=== PATIENT | male | born 1935 | race Caucasian/White ===

== ENCOUNTER 2021-01-03 13:21 | Emergency (ER) | payer MEDICARE ==
[2021-01-03 13:47] LABS: BASOPHILS % (AUTO) 0.7 %; EOSINOPHILS % (AUTO) 2.4 %; HCT - HEMATOCRIT 47.3 % (42.0-52.0); LYMPHOCYTES % (AUTO) 18.7 %; MEAN CORPUSCULAR HEMOGLOBIN 30.4 pg (27.0-31.0); MEAN CORPUSCULAR HGB CONC 33.8 g/dL (32.0-36.0); MEAN CORPUSCULAR VOLUME 89.9 fL (80.0-94.0); MEAN PLATELET VOLUME 10.1 fL (7.4-11.4); MONOCYTES % (AUTO) 20.4 %; NEUTROPHILS % (AUTO) 57.6 %; PLT - PLATELET COUNT 260 10^3/uL (130-450); RED BLOOD COUNT 5.26 10^6/uL (4.70-6.10); RED CELL DISTRIBUTION WIDTH 13.9 % (12.0-15.0); WHITE BLOOD COUNT 8.3 x10^3/uL (4.8-10.8)
[2021-01-03 13:49] LABS: ABNORMAL LYMPHS % (MANUAL) 0 %
--- NOTE | 2021-01-03 13:55 | ED Physician Documentation ---
PD HPI NVD - Stated complaint Stated Complaint: WEAKNESS - Chief complaint Chief Complaint: Abd Pain - History obtained from History obtained from: Patient - History of Present Illness Timing - onset: How many days ago (3-4) Timing - duration: Days (had nausea vomiting and diarrhea for couple of days over weekend, with cessation of V/D the past 2 days, but still with feeling of general weakness and lightheaded. No headache nor confusion.) Timing - details: Abrupt onset, Still present Associated symptoms: Melena (he states had dark/black diarrhea for the 2 days, with partly formed stool last evening.). No: Fever, Chest pain, Hematemesis, Near syncope / syncope Contributing factors: Bad food (he feels likely food related since was at wedding [employer] that lasted couple of days, with potluck foods mainly. Onset of N/V/D in the evening after eating lots of foods, including some oysters on the half shell. He really feels food poisoning.). No: Sick contact, Travel, Recent antibiotics Worsened by: Eating Similar symptoms before: Has not had sx before Recently seen: Not recently seen Review of Systems Constitutional: reports: Myalgias, Fatigue. denies: Fever, Chills Nose: denies: Rhinorrhea / runny nose, Congestion Throat: denies: Sore throat Respiratory: denies: Cough GI: reports: Abdominal Pain, Nausea, Vomiting, Diarrhea, Bloody / black stool (he states the diarrhea was dark colored/black.). denies: Hematemesis Neurologic: reports: Generalized weakness. denies: Near syncope, Confused, Headache PD PAST MEDICAL HISTORY - Past Medical History Cardiovascular: None Respiratory: None Neuro: None Endocrine/Autoimmune: Type 2 diabetes - Present Medications Home Medications: Ambulatory Orders Medication Instructions Recorded Confirmed Ondansetron Odt [Zofran] 4 mg TL Q6H PRN #10 tablet 01/03/21 - Allergies Allergies/Adverse Reactions: Allergies Allergy/AdvReac Type Severity Reaction Status Date / Time No Known Drug Allergies Allergy Verified 01/03/21 13:26 - Living Situation Living Situation: reports: With spouse/s.o. Living Arrangement: reports: At home - Social History Does the pt smoke?: No Does the pt drink ETOH?: Yes Does the pt have substance abuse?: No PD ED PE NORMAL - Vitals Vital signs reviewed: Yes - General General: Alert and oriented X 3, No acute distress, Well developed/nourished - HEENT HEENT: Moist mucous membranes, Pharynx benign - Neck Neck: Supple, no meningeal sign, No adenopathy - Cardiac Cardiac: RRR, No murmur - Abdomen Abdomen: Soft, Non distended, Other (tender LLQ with some mild guarding. ) - Male Male : Deferred - Rectal Rectal: Deferred - Derm Derm: Normal color, Warm and dry - Extremities Extremities: No tenderness to palpate, Normal ROM s pain, No edema, No calf tenderness / cord - Neuro Neuro: Alert and oriented X 3, No motor deficit, Normal speech Results - Vitals Vitals: Vital Signs - 24 hr 01/03/21 01/03/21 13:26 15:58 Temperature 37 C 37.1 C Heart Rate 74 88 Respiratory 18 16 Rate Blood Pressure 145/86 H 126/73 O2 Saturation 97 97 Oxygen O2 Source Room air - Labs Labs: Laboratory Tests 01/03/21 01/03/21 01/03/21 13:41 13:41 13:41 WBC 8.3 RBC 5.26 Hgb 16.0 Hct 47.3 MCV 89.9 MCH 30.4 MCHC 33.8 RDW 13.9 Plt Count 260 MPV 10.1 Neut # (Auto) Not Reportable Lymph # (Auto) Not Reportable [place] # (Auto) Not Reportable Eos # (Auto) Not Reportable Baso # (Auto) Not Reportable Absolute Nucleated RBC Not Reportable Total Counted 100 Band Neuts % (Manual) 10 Reactive Lymphs % (Man) 8 Abnorm Lymph % (Manual) 0 Nucleated RBC % Not Reportable Neutrophils # (Manual) 4.6 Lymphocytes # (Manual) 1.7 Monocytes # (Manual) 1.7 H Eosinophils # (Manual) 0.1 Basophils # (Manual) 0.1 Differential Comment MANUAL DIFFERENTIAL WBC Morphology 1+ TOXIC GRANULATION Platelet Estimate NORMAL (130-450,000) Platelet Morphology NORMAL APPEARANCE RBC Morph Micro Appear NORMAL APPEARANCE Sodium 138 Potassium 3.8 Chloride 102 Carbon Dioxide 25 Anion Gap 11.0 BUN 21 H Creatinine 1.1 Estimated GFR (MDRD) 64 L Glucose 101 H Calcium 9.5 Magnesium 2.1 Total Bilirubin 1.6 H AST 24 ALT 23 Alkaline Phosphatase 65 Total Protein 7.3 Albumin 4.3 Globulin 3.0 Albumin/Globulin Ratio 1.4 Lipase 27 Urine Color Urine Clarity Urine pH Ur Specific [place] Urine Protein Urine Glucose (UA) Urine Ketones Urine Occult Blood Urine Nitrite Urine Bilirubin Urine Urobilinogen Ur Leukocyte Esterase Ur Microscopic Review Urine Culture Comments 01/03/21 13:50 WBC RBC Hgb Hct MCV MCH MCHC RDW Plt Count MPV Neut # (Auto) Lymph # (Auto) [place] # (Auto) Eos # (Auto) Baso # (Auto) Absolute Nucleated RBC Total Counted Band Neuts % (Manual) Reactive Lymphs % (Man) Abnorm Lymph % (Manual) Nucleated RBC % Neutrophils # (Manual) Lymphocytes # (Manual) Monocytes # (Manual) Eosinophils # (Manual) Basophils # (Manual) Differential Comment WBC Morphology Platelet Estimate Platelet Morphology RBC Morph Micro Appear Sodium Potassium Chloride Carbon Dioxide Anion Gap BUN Creatinine Estimated GFR (MDRD) Glucose Calcium Magnesium Total Bilirubin AST ALT Alkaline Phosphatase Total Protein Albumin Globulin Albumin/Globulin Ratio Lipase Urine Color YELLOW Urine Clarity CLEAR Urine pH 6.0 Ur Specific [place] 1.020 Urine Protein NEGATIVE Urine Glucose (UA) NEGATIVE Urine Ketones 15 H Urine Occult Blood NEGATIVE Urine Nitrite NEGATIVE Urine Bilirubin NEGATIVE Urine Urobilinogen 0.2 (NORMAL) Ur Leukocyte Esterase NEGATIVE Ur Microscopic Review NOT INDICATED Urine Culture Comments NOT INDICATED - Rads (name of study) abd/pelvic CT Radiology: Prelim report reviewed (no acute process. ), See rad report PD MEDICAL DECISION MAKING - ED course Complexity details: re-evaluated patient (does feel improved after IV fluids and Zofran. ), considered differential (seems likely food poisoning vs viral GE initially and improved, with now nausea/fatigue and some left abd pain. Consider triggered diverticulitits. ), d/w patient Departure - Departure Disposition: 01 Home, Self Care Clinical Impression: Acute diarrhea, Nausea, Dehydration Condition: Stable Record reviewed to determine appropriate education?: Yes Prescriptions: Ondansetron Odt [Zofran] 4 mg TL Q6H PRN #10 tablet PRN Reason: Nausea / Vomiting Comments: Your basic blood tests of blood count chemistry panel which includes electrolytes and kidney function and blood sugar are looking okay. Your CT scan does not show any localized area of infection or problem such as diverticulitis or mass or obstruction. It does sound likely to be what you were thinking of food poisoning or mild "stomach flu". You may likely be just feeling ill as a residual of that. Frequent fluids through the day today and bland food initially. Ondansetron if needed for nausea. On recheck if not completely resolved within 2 to 3 days return if worse. Discharge Date/Time: 01/03/21 15:59
[2021-01-03 14:04] LABS: BILIRUBIN,URINE NEGATIVE (NEGATIVE); GLUCOSE, URINE (UA) NEGATIVE (NEGATIVE); KETONES,URINE (UA) 15 mg/dL (NEGATIVE); LEUKOCYTE ESTERASE, URINE NEGATIVE (NEGATIVE); NITRITE,URINE NEGATIVE (NEGATIVE); OCCULT BLOOD,URINE NEGATIVE (NEGATIVE); PROTEIN,URINE NEGATIVE (NEGATIVE); UROBILINOGEN,URINE 0.2 (NORMAL) E.U./dL (NORMAL)
[2021-01-03 14:11] LABS: ALBUMIN 4.3 g/dL (3.2-5.5); ALBUMIN/GLOBULIN RATIO 1.4 (1.0-2.2); BILIRUBIN,TOTAL 1.6 mg/dL (0.2-1.0); CALCIUM 9.5 mg/dL (8.5-10.3); CREATININE 1.1 mg/dL (0.6-1.2); POTASSIUM 3.8 mmol/L (3.5-5.0); TOTAL PROTEIN 7.3 g/dL (6.7-8.2)
[2021-01-03 14:12] LABS: CLARITY,URINE CLEAR (CLEAR)
[2021-01-03 14:20] LABS: BAND NEUTROPHILS % (MANUAL) 10 %; BASOPHILS # (MANUAL) 0.1 10^3/uL (0-0.1); BASOPHILS % (MANUAL) 1 %; EOSINOPHILS # (MANUAL) 0.1 10^3/uL (0-0.7); LYMPHOCYTES # (MANUAL) 1.7 10^3/uL (1.5-3.5); LYMPHOCYTES % (MANUAL) 13 %; MONOCYTES # (MANUAL) 1.7 10^3/uL (0.0-1.0); NEUTROPHILS # (MANUAL) 4.6 10^3/uL (1.5-6.6); REACTIVE LYMPHS % (MANUAL) 8 %
[2021-01-03 14:21] LABS: DIFFERENTIAL COMMENT MANUAL DIFFERENTIAL; PLATELET ESTIMATE, MANUAL NORMAL (130-450,000) (NORMAL); PLATELET MORPHOLOGY NORMAL APPEARANCE (NORMAL); RBC MORPHOLOGY (MULTIPLE) NORMAL APPEARANCE (NORMAL); WBC MORPHOLOGY (MULTIPLE) 1+ TOXIC GRANULATION (NORMAL)
[2021-01-03] MEDS ORDERED: KETOROLAC 15 MG/ML VIAL IVP STA (14:23)
[2021-01-03] MEDS ORDERED: ONDANSETRON 4 MG/2 ML VIAL IVP STA (14:23)
[2021-01-03] MEDS ORDERED: SODIUM CHLORIDE 0.9% 1,000 ML IV STA (14:23)
[2021-01-03] MEDS ORDERED: IOVERSOL 320 100 ML VIAL IVP ONE ×2 (14:31→17:33)
--- NOTE | 2021-01-03 15:30 | CT Report ---
PROCEDURE: Abdomen/Pelvis W INDICATIONS: LLQ tenderness and diarrhea for few days CONTRAST: IV CONTRAST: Optiray 320 ml: 100 PO CONTRAST: *NO PO CONTRAST TECHNIQUE: After the administration of contrast, 5 mm thick sections acquired from the diaphragms to the sym physis. 5 mm thick coronal and sagittal reformats were acquired. For radiation dose reduction, the following was used: automated exposure control, adjustment of mA and/or kV according to patient size . COMPARISON: None. FINDINGS: Image quality: Excellent. ABDOMEN: Lung bases: Lung bases are clear. Heart size is normal. Solid organs: Liver and spleen are normal in size and enhancement. Gallbladder appears normal Bili kiran system is non dilated. Pancreas enhances normally. No adrenal nodules. Kidneys demonstrate nor mal size and enhancement, without hydronephrosis. Peritoneum and bowel: Bowel loops demonstrate normal wall thickness and caliber. No free fluid or a ir. Nodes and vessels: No retroperitoneal or mesenteric adenopathy by size criteria. Aorta and inferior vena cava are normal in size. Miscellaneous: No ventral hernias. PELVIS: Genitourinary: Bladder wall thickness is normal but there are bilateral identical posterolateral chela dder wall diverticula, indicating likelihood of some degree of bladder outlet obstruction. The larges t dimension at the right bladder diverticulum is 6.1 cm and that on the left is 4.3 cm.. Miscellaneous: No inguinal hernias or adenopathy. Bones: No suspicious bony lesions. No vertebral body compression fractures. IMPRESSION: No sign of diverticulitis or neoplasm within the abdomen or pelvis. Note is made of 2 bi lateral bladder diverticula, the largest is located at the right posterior lateral bladder margin. Th is is not associated with evidence of bladder wall trabeculation or thickening. No sign of colitis, s ource of reported diarrhea is not found. Reviewed by: Justyn Reddy MD on 01/03/2021 3:28 PM PDT Approved by: Justyn Reddy MD on 01/03/2021 3:28 PM PDT Station ID: [id number]
[2021-01-03 15:59] VITALS: BP 126/73
== END 2021-01-03 15:59 | disposition home or self-care (01) ==
LOC: ED 13:21
DX: R19.7 Diarrhea, unspecified (principal); R11.2 Nausea with vomiting, unspecified; E86.0 Dehydration; R10.32 Left lower quadrant pain; E11.9 Type 2 diabetes mellitus without complications
CPT/HCPCS: 36415; 74177; 80053; 81003; 83690; 83735; 85025; 96361; 96374; 96375; 99283; 99284; Q9967; 81001; 87086